=== PATIENT | female | born 1970 | race Native Hawaiian/Other Pacific Islander ===

== ENCOUNTER 2017-01-15 17:06 | Emergency (ER) | payer OTHER ==
[~2017-01-15] VITALS: Ht 162.6 cm; Wt 65.8 kg
== END 2017-01-15 17:27 | disposition home or self-care (01) ==
LOC: ED 17:06
DX: K08.89 Other specified disorders of teeth and supporting structures (principal); K02.9 Dental caries, unspecified; K05.30 Chronic periodontitis, unspecified
CPT/HCPCS: 99282; J1885

== ENCOUNTER 2017-07-08 15:36 | Emergency (ER) | payer OTHER ==
[~2017-07-08] VITALS: Ht 162.6 cm; Wt 65.8 kg
== END 2017-07-08 16:00 | disposition home or self-care (01) ==
LOC: ED 15:36
DX: K02.9 Dental caries, unspecified (principal)
CPT/HCPCS: 99281; 99282

== ENCOUNTER 2019-02-07 19:56 | Emergency (ER) | payer OTHER ==
[~2019-02-07] VITALS: Ht 162.6 cm; Wt 67.1 kg
[2019-02-07 21:31] LABS: PLATELET COUNT 469 K/uL (152-353)
[2019-02-07 21:53] LABS: POTASSIUM 3.3 mmol/L (3.6-5.2); SODIUM 136 mmol/L (136-145)
[2019-02-07 22:45] VITALS: BP 121/58; TEMP 98.4
== END 2019-02-07 22:45 | disposition home or self-care (01) ==
LOC: ED 19:56
PROVIDERS: Internal Medicine
DX: R07.89 Other chest pain (principal); M25.511 Pain in right shoulder; J44.9 Chronic obstructive pulmonary disease, unspecified; K82.9 Disease of gallbladder, unspecified
CPT/HCPCS: 36415; 80053; 81000; 82550; 84484; 85027; 93005; 99283